=== PATIENT | female | born 1950 | race Caucasian/White ===

== ENCOUNTER 2020-08-15 03:25 | Outpatient (RCR) | payer MEDICARE, OTHER, SELFPAY ==
[2020-08-15] MEDS: Denosumab 60 MG/ML SYR SC (09:48)
== END 2020-09-03 23:59 | disposition home or self-care (01) ==
LOC: INF 03:25
PROVIDERS: PCP Nurse Practitioner; Visit Provider Internal Medicine
DX: M81.0 Age-related osteoporosis without current pathological fracture (principal)
CPT/HCPCS: 96372; J0897

== ENCOUNTER 2021-11-25 14:11 | Outpatient (REF) | payer MEDICARE, OTHER, SELFPAY ==
[2021-11-27 11:34] LABS: COVID-19 RT-PCR UVMMC Result Negative (Negative)
== END 2021-11-25 14:12 | disposition home or self-care (01) ==
LOC: LBN 14:11
PROVIDERS: Nurse Practitioner Family; PCP Nurse Practitioner; Visit Provider Nurse Practitioner
DX: Z20.822 Contact with and (suspected) exposure to COVID-19 (principal)
CPT/HCPCS: U0003

== ENCOUNTER 2022-08-12 02:47 | Outpatient (RCR) | payer MEDICARE, OTHER, SELFPAY ==
[2022-08-12] MEDS: Denosumab 60 MG/ML SYR SC (09:01)
== END 2022-09-03 23:59 | disposition home or self-care (01) ==
LOC: INF 02:47
PROVIDERS: PCP Nurse Practitioner; Visit Provider Nurse Practitioner Family
DX: M81.0 Age-related osteoporosis without current pathological fracture (principal)
CPT/HCPCS: 96372; J0897

== ENCOUNTER 2023-10-26 02:14 | Outpatient (RCR) | payer MEDICARE, OTHER, SELFPAY ==
[2023-10-26] MEDS: Denosumab 60 MG/ML SYR SC (09:27)
== END 2023-11-05 23:59 | disposition home or self-care (01) ==
LOC: INF 02:14
PROVIDERS: PCP Nurse Practitioner; Visit Provider Nurse Practitioner
DX: M81.0 Age-related osteoporosis without current pathological fracture (principal)
CPT/HCPCS: 96372; J0897

== ENCOUNTER 2024-08-31 09:27 | Outpatient (CLI) | payer MEDICARE, OTHER, SELFPAY ==
--- NOTE | 2024-08-31 08:45 | DI.RAD_ITS ---
Exam(s) XR KNEE RT 3V AP,LAT,MELA EXAM: XR KNEE RT 3V AP,LAT,MELA CLINICAL HISTORY: increase in pain, OA of rt knee, M17.11. TECHNIQUE: 2D digital imaging was performed. Three views. COMPARISON: No exams were available for comparison FINDINGS: BONES: No acute fracture is present. No bony destructive lesion is seen. JOINTS: There is severe narrowing of the lateral femoral tibial joint space and prominent periarticular spurring. This causes widening of the medial femoral tibial joint space and valgus angulation. Spurring is also present at the patellofemoral joint. A small joint effusion is seen. SOFT TISSUE: Normal. 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 DATA REPOSITORY: RADIATION DOSE DELIVERED:
== END 2024-08-31 09:47 ==
LOC: DI 09:29
PROVIDERS: PCP Nurse Practitioner; Visit Provider Family Medicine
DX: M17.11 Unilateral primary osteoarthritis, right knee (principal)
CPT/HCPCS: 73562

== ENCOUNTER 2024-11-07 03:01 | Outpatient (RCR) | payer MEDICARE, OTHER, SELFPAY ==
[2024-11-07] MEDS: Denosumab 60 MG/ML SYR SC (09:13)
== END 2024-12-04 23:59 | disposition home or self-care (01) ==
LOC: INF 03:01
PROVIDERS: PCP Nurse Practitioner; Visit Provider Nurse Practitioner
DX: M81.0 Age-related osteoporosis without current pathological fracture (principal)
CPT/HCPCS: 96372; J0897